=== PATIENT | female | born 1970 | race Caucasian/White ===

== ENCOUNTER → 2018-06-08 17:52 | Outpatient (CLI) | payer BC, SELFPAY ==
[2018-06-08 19:55] LABS: M R Staph aureus DNA By PCR Negative (Negative); Probe Check PASS; Specimen Processing Control PASS; Staph aureus DNA By PCR POSITIVE (Negative)
== END ==
PROVIDERS: Family Provider Internal Medicine; PCP Internal Medicine; Visit Provider Podiatrist
DX: L60.0 Ingrowing nail (principal)
CPT/HCPCS: 87070; 87075; 87077; 87186; 87205; 87640

== ENCOUNTER → 2019-01-09 14:05 | Outpatient (CLI) | payer BC, SELFPAY ==
[2019-01-09 10:20] VITALS: BMI 27.6
[2019-01-09 16:18] LABS: Chlamydia Trachomatis by PCR Negative (Negative); Neisserai gonorrhoeae by PCR Negative (Negative); Probe Check PASS; Sample Adequacy Control PASS; Specimen Processing Control PASS
[2019-01-11 14:24] LABS: HPV APTIMA, High Risk Negative (Negative)
== END ==
PROVIDERS: Referring Provider Nurse Practitioner Women's Health; Visit Provider Nurse Practitioner Women's Health
DX: Z12.4 Encounter for screening for malignant neoplasm of cervix (principal); Z11.3 Encounter for screening for infections with a predominantly sexual mode of transmission
CPT/HCPCS: 87491; 87591; 87624; 88175; G0145

== ENCOUNTER → 2019-01-12 07:44 | Outpatient (CLI) | payer BC, SELFPAY ==
[2019-01-09 10:20] VITALS: BMI 27.6
--- NOTE | 2019-01-12 07:51 | US_ITS ---
STUDY: ULTRASOUND OF THE FEMALE PELVIS - COMPLETE REASON FOR EXAM: Female, 48 years old. Prolapse LMP: 12/29/2018 TECHNIQUE: Transabdominal and Transvaginal TECHNICAL QUALITY: Adequate. COMPARISON: None. FINDINGS: The uterus is anteverted and is in a midline position. The uterus measures 9.1 x 5.7 x 4.6 cm. There is a Nabothian cyst of the cervix. The endometrium measures 3.7 mm in thickness, and is hyperechoic. There is no demonstrated endometrial mass. Myometrial fibroid noted measuring 1.8 x 1.7 x 1.4 cm. I.U.D. - The patient does not have an I.U.D. The right ovary is visualized. The right ovary measures 2.7 x 2 x 1.7 cm. There is no right ovarian cyst or ovarian mass. There is no visualized right adnexal mass or complex lesion. There is normal arterial and normal venous vascularity. The left ovary is visualized. The left ovary measures 2.2 x 2.6 x 1.4 cm. There is no left ovarian cyst or ovarian mass. There is no visualized left adnexal mass or complex lesion. There is normal arterial and normal venous vascularity. There is no fluid in the cul-de-sac. The pre void volume of the bladder was 348 ml. US/Transvaginal Non- IMPRESSION: Small uterine fibroid. Otherwise, unremarkable exam. Electronically Signed: Denny Ventura DO at 12:00 EST Tel , Service support ,
--- NOTE | 2019-01-12 07:51 | US_ITS ---
STUDY: ULTRASOUND OF THE FEMALE PELVIS - COMPLETE REASON FOR EXAM: Female, 48 years old. Prolapse LMP: 12/29/2018 TECHNIQUE: Transabdominal and Transvaginal TECHNICAL QUALITY: Adequate. COMPARISON: None. FINDINGS: The uterus is anteverted and is in a midline position. The uterus measures 9.1 x 5.7 x 4.6 cm. There is a Nabothian cyst of the cervix. The endometrium measures 3.7 mm in thickness, and is hyperechoic. There is no demonstrated endometrial mass. Myometrial fibroid noted measuring 1.8 x 1.7 x 1.4 cm. I.U.D. - The patient does not have an I.U.D. The right ovary is visualized. The right ovary measures 2.7 x 2 x 1.7 cm. There is no right ovarian cyst or ovarian mass. There is no visualized right adnexal mass or complex lesion. There is normal arterial and normal venous vascularity. The left ovary is visualized. The left ovary measures 2.2 x 2.6 x 1.4 cm. There is no left ovarian cyst or ovarian mass. There is no visualized left adnexal mass or complex lesion. There is normal arterial and normal venous vascularity. There is no fluid in the cul-de-sac. The pre void volume of the bladder was 348 ml. US/Pelvic (Non ) IMPRESSION: Small uterine fibroid. Otherwise, unremarkable exam. Electronically Signed: Denny Ventura DO at 12:00 EST Tel , Service support ,
== END ==
PROVIDERS: Referring Provider Nurse Practitioner Women's Health; Visit Provider Nurse Practitioner Women's Health
DX: D25.9 Leiomyoma of uterus, unspecified (principal)
CPT/HCPCS: 76830; 76856

== ENCOUNTER → 2022-12-30 | Outpatient (CLI) | payer BC, SELFPAY ==
[2022-12-30 15:39] LABS: Absolute Lymphocyte Count 2.97 X10^3/uL (0.83-4.51); Absolute Neutrophil Count 4.2 X10^3/uL (2.0-7.7); Basophil# 0.06 X10^3/uL; Basophil% 0.7 % (0-1); Eosinophil# 0.36 X10^3/uL; Eosinophils% 4.4 % (0-5); Hematocrit 39.2 % (37-47); Hemoglobin 12.9 g/dL (12.0-15.0); Lymphocyte # 2.97 X10^3/ul (0.83-4.51); Lymphocyte % 36.5 % (19-41); Mean Corp Hgb Conc 32.9 g/dL (32-36); Mean Corpuscular Hgb 30.4 pg (27.0-32.0); Mean Corpuscular Volume 92.2 fL (81-99); Mean Platelet Vol. 8.3 fl (6.2-12.0); Monocyte# 0.55 X10^3/uL; Monocyte% 6.8 % (0-10); NRBC Flagged by Analyzer 0 % (0-5); Neutrophil # 4.18 X10^3/uL (2.7-7.7); Neutrophil % 51.5 % (47-70); Platelet Count 259 K/mm3 (150-450); RBC Distribution Width CV 12.7 % (11.6-14.6); RBC Distribution Width SD 43.2 fl (35.1-43.9); Red Blood Count 4.25 M/mm3 (4.2-5.4); White Blood Count 8.1 K/mm3 (4.4-11.0)
[2022-12-30 16:06] LABS: Hemoglobin A1c 5.2 % (3.8-5.6)
[2022-12-30 16:25] LABS: AST(SGOT) 15 U/L (15-37); Alanine Aminotransfer ALT/SGPT 17 U/L (13-56); Albumin, Serum 3.6 g/dL (3.2-5.0); Alkaline Phosphatase 95 U/L (45-117); Anion Gap 7 (5-15); BUN 17 mg/dL (7-18); BUN/Creat Ratio 22.1 RATIO (10-20); Calcium,Total 9.3 mg/dL (8.5-10.1); Chloride 110 mmol/L (98-107); Cholesterol 168 mg/dL (200); Creatinine, Serum 0.77 mg/dL (0.55-1.02); EST Glomerular Filtration Rate 83 mL/min (>60); Est Glom Filt Rate - Afr Amer 101 mL/min (>60); Globulin 3.6 g/dL (2.2-4.2); Glucose 77 mg/dL (74-106); High Density Lipoprotein 62 mg/dL; Potassium 4.1 mmol/L (3.5-5.1); Protein, Total 7.2 g/dL (6.4-8.2); Sodium Level 142 mmol/L (136-145); Thyroid Stim Hormone (TSH) 0.94 uIU/mL (0.358-3.74); Triglycerides 65 mg/dL; Very Low Density Lipoprotein 13 mg/dL (5-40)
== END | disposition home or self-care (01) ==
LOC: LAB 13:39
DX: Z01.411 Encounter for gynecological examination (general) (routine) with abnormal findings (principal)
CPT/HCPCS: 36415; 80053; 80061; 83036; 84443; 85025

== ENCOUNTER → 2023-01-14 | Outpatient (CLI) | payer BC, SELFPAY ==
--- NOTE | 2023-01-14 08:23 | BI_ITS ---
MAMMOGRAPHY - BILATERAL SCREENING REASON FOR EXAM: Female, 52 years old. Routine annual screening examination. PERTINENT HISTORY: Non-contributory. TECHNIQUE: Digital bilateral breast deshawn (3D mammographic acquisition) in the CC and MLO projections. 2-D mediolateral oblique (MLO) and craniocaudad (CC) views of both breasts were obtained. CAD: Full Field Digital Mammography with Computer Added Detection was performed. COMPARISON: Comparison is made with prior study 08/01/2014. FINDINGS: Breast Composition: The breasts are heterogeneously dense, which may obscure small masses. There are no dominant masses or suspicious calcifications. Stable small benign-appearing bilateral axillary lymph nodes. No other significant abnormalities are identified. There has been no significant change since the prior study. BI/SCRN MAMM (CAD)W/DESHAWN BILAT IMPRESSION: Stable bilateral screening mammogram. Yearly follow-up mammogram recommended. (A) ASSESSMENT CATEGORY: BIRADS Category 2: Benign. A letter regarding these results will be sent to the patient by the facility within 30 days. Approximately 10% of breast cancers are not detected by mammography. A normal mammogram should not delay biopsy of a clinically suspicious abnormality. [id number] Electronically Signed: Benigno Ruvalcaba MD at 10:04 EST ,
== END | disposition home or self-care (01) ==
PROVIDERS: Referring Provider Nurse Practitioner Women's Health; Visit Provider Nurse Practitioner Women's Health
DX: Z12.31 Encounter for screening mammogram for malignant neoplasm of breast (principal)
CPT/HCPCS: 77063; 77067

== ENCOUNTER → 2023-01-15 | Outpatient (CLI) | payer BC, SELFPAY ==
[2023-01-20 19:47] LABS: Calprotectin, Stool <16 ug/g (0-120)
== END | disposition home or self-care (01) ==
LOC: LABSPEC 08:56
PROVIDERS: Referring Provider Surgery; Visit Provider Surgery
DX: R19.7 Diarrhea, unspecified (principal); K59.00 Constipation, unspecified; R10.9 Unspecified abdominal pain
CPT/HCPCS: 82274; 83630; 83993; 87177; 87209; 87493; 87506

== ENCOUNTER 2023-03-04 08:58 | Day surgery (SDC) | payer BC, SELFPAY ==
[2023-03-04] VITALS (8 sets, daily range): BP systolic 96–132; BP diastolic 57–80; PULSE 63–76; RESP 16–18; TEMP 36.6–37; O2SAT 97–100; BMI 26.7
--- NOTE | 2023-03-04 | COLBX_PTH ---
PATIENT: TAMARA REGALADO LOC: EN U#:[id number] AGE/SX: 52/F ROOM: RE03/04/[address]: Dr. David Acosta MD : 1970 BED: DIS: 03/04/2023 SPEC #: [id number] RECD: 03/04/23 12:19 STATUS: JANELLE SHRAVAN #: [id number] DE: 03/04/23 00:[address]: David Acosta DEPT: SURGICAL PATHOLOGY RECD BY: Sukhjinder Craft ENTERED: 03/04/23 12:20 SP TYPE: COLON BX OTHR DR: [facility] Tissues: A - Ascending colon B - Transverse colon C - Descending colon D - Sigmoid colon biopsy E - Rectum, NOS Procedures: Surgery Specimen Level IV HEADER OPERATION: Colonoscopy (MAC) with biopsies PRE-OP DIAGNOSIS: Diarrhea, constipation, acid reflux, hemorrhoids TISSUE SUBMITTED: A ? Ascending colon biopsy, B ? Transverse colon biopsy, C ? Descending colon biopsy, D ? Sigmoid colon biopsy, E ? Rectal biopsy MICROSCOPIC DIAGNOSIS A. Ascending colon, biopsy: Fragments of colonic mucosa, no pathologic diagnosis. B. Transverse colon, biopsy: Fragments of colonic mucosa, no pathologic diagnosis. C. Descending colon, biopsy: Fragments of colonic mucosa, no pathologic diagnosis. D. Sigmoid colon, biopsy: Fragments of colonic mucosa, no pathologic diagnosis. E. Rectal biopsy: Fragments of colonic mucosa, no pathologic diagnosis. SJ:lalitha 03/05/2023 MICROSCOPIC DESCRIPTION Slides are reviewed. GROSS DESCRIPTION A - Received in fixative is one container labeled with the patient's name and designated ascending colon biopsy. The specimen consists of multiple irregular fragments of light villalobos soft tissue that in aggregate measure 1.5 x 0.2 x 0.1 cm. The specimen is totally submitted in one cassette. B - Received in fixative is one container labeled with the patient's name and designated transverse colon biopsy. The specimen consists of multiple irregular fragments of light villalobos soft tissue that in aggregate measure 1.5 x 0.3 x 0.1 cm. The specimen is totally submitted in one cassette. C - Received in fixative is one container labeled with the patient's name and designated descending colon biopsy. The specimen consists of two irregular fragments of light villalobos soft tissue that in aggregate measure 0.6 x 0.3 x 0.1 cm. The specimen is totally submitted in one cassette. D - Received in fixative is one container labeled with the patient's name and designated sigmoid colon biopsy. The specimen consists of multiple irregular fragments of light villalobos soft tissue that in aggregate measure 0.6 x 0.3 x 0.1 cm. The specimen is totally submitted in one cassette. E - Received in fixative is one container labeled with the patient's name and designated rectal biopsy. The specimen consists of two irregular fragments of light villalobos soft tissue that in aggregate measure 0.6 x 0.3 x 0.1 cm. The specimen is totally submitted in one cassette. / SJ:rg 03/04/2023 TC:4 CPT: 98438 x5
[2023-03-04] MEDS: Lactated Ringers 1,000 ML 15 ML IV (09:27)
--- NOTE | 2023-03-04 10:46 | PCM.HP.BLA ---
History and Physical Date of Admission: 03/04/23 Date of Service:? 01/13/23 MR#: [id number] Acct: [id number] Name:TAMARA SANDOVAL Rep #: [id number] : 1970 ? ? Provider: Dr. David Acosta MD Age/Sex:? 52/F ? ? Location: [facility] Status: Signed Intake Vital Signs ? 01/11/2309:02 01/13/2308:56 Height 5 ft 1 in 5 ft 1 in Weight: ? 146 lb BMI ? 27.6 BP ? 143/85 H Blood Pressure Location ? Lt brachial Position ? Sitting Respiration ? 16 Pulse ? 72 Pulse Source ? Monitor Temp ? 97.6 F L Temp Source ? Temporal Pulse Oximetry (%) ? 99 Oxygen Delivery Method ? room air Intake Visit Reasons:?Constipation/Diarrhea Chief Complaint: Constipation/Diarrhea Skylights Assembler Required: No Is patient in pain?: No Allergies No Known Allergies Allergy (Unverified 01/13/23 08:58) Medications ibuprofen 200 mg capsule 200 mg PO TID-QID PRN 01/09/19 [History Confirmed 01/13/23] PFSH Medical History?(Updated 01/13/23 @ 15:[address] David Acosta MD) Anxiety and depression History of back problems Surgical History? H/O dilation and curettage H/O tubal ligation History of toe surgery History of tonsillectomy Family History?(Updated 01/13/23 @ 08:56 by Frances Wednesday) Mother COPD (chronic obstructive pulmonary disease) Kidney disease CVA (cerebral vascular accident) Congestive heart disease Heart disease HypertensionFather Congestive heart disease COPD (chronic obstructive pulmonary disease) Hypertension Social History? Smoking Status:? Never smoker alcohol intake:? never substance use type:? does not use caffeine:? Yes what type of physical activity do you participate in:? walking seatbelt use:? always do you feel safe at home:? 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 They are referred for surgical consultation from [facility]. She states that she was seen [facility] and was advised to present for evaluation after discussing her symptoms.? She states that she has talked a lot of people about IBS and decided to have herself checked.? She reports greater than 10-year history of diarrhea and constipation.? She notes that she always has Imodium with her and usually takes 2 tablets every day.? She notes that if she eats any hibachi [place] food this is cause for more diarrhea.? She also identifies triggers as poultry or eggs.? 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 Patient has not had prior colonoscopy.? Patient has no personal history of colon cancer, inflammatory bowel disease, or diverticulitis. They describe their bowel habits as most recently normal.? They have approximately 3 per day and spend no more than 5 minutes on the toilet without (now) significant straining.? They have not noticed recent bleeding or dark stools.? They do not regularly take fiber supplements.? They do have a history of hemorrhoids which she states has been there since her first in 1988.? When asked what treatment she has done for these hemorrhoids she reports that she just waits for them to go back down and has never done even anything topically to treat them.? She notes that it by decreasing her grease intake this seems to have decreased her incidence of troubles.? She notes that in the midst of a hemorrhoid flare.? She experiences bulging, itching, pain, and bleeding.? She reports her last bleeding episode was a couple of days ago. Patient has no family history of colon cancer, inflammatory bowel disease, or diverticulitis.? She states this could simply be due to her lack of awareness on the issue as her mother was very secretive about health diagnoses.? She does remark that her mother had constipation issues and also towards the end of her life experienced incontinence symptoms.? The patient's weight is not stable.? She reports an approximately 17 pound weight loss since July 2022.? She states that although this is unintentional, she believes she knows that this is related to her depression from a break-up with longtime boyfriend.? She reports that her eating habits are picking up.? And along with this she is noticing an improvement in her energy levels to (where she had previously reported some fatigue). The patient is not prescribed anticoagulants/blood thinners. Relevant prior abdominal surgical history includes: D&C Patient does have a significant history of GERD.? She states that she primarily has reflux and minimal heartburn.? She states that she never had gotten it checked out, but learned to manage it herself.? She intentionally avoided food triggers like spicy foods and marinara sauces.? She reports only using Tums to treat this symptom.? She notes that over 10 years ago she was trialed on omeprazole, but has not been on a PPI medication since.? She reports that her episodes of reflux have not been particularly bad and her last episode was some 2 to 3 months ago.? However, previously she notes that her episodes could have been 2-3 times per day. ROS General General: Yes weight change and fatigue; No appetite, colon cancer, breast cancer or weakness HEENT HEENT: No difficulty swallowing, eye injury, eye surgery, swollen glands or hoarseness Endo Endocrine: No thyroid disease, diabetes mellitus, thyroid cancer, Hair loss, heat intolerance or cold intolerance Skin Skin: No rash or changing moles Musc Musculoskeletal: Yes back problems; No arthritis, rheumatoid arthritis, gout or joint pain Cardio Cardiovascular: No murmur, pacemaker, heart disease, atrial fibrillation, high blood pressure, heart attack, heart stent, palpitations, shortness of breat with exertion or chest pain Psych Psychiatric: Yes depression; No anxiety or hearing voices Resp Respiratory: No shortness of breath, Yes sleep apnea, No cough, No COPD, No asthma, No emphysema and No wheezing Gastro Gastrointestinal: Yes abdominal pain, No nausea or vomiting, Yes diarrhea, Yes constipation, No blood in stool, Yes acid reflux, Yes hemorrhoids, No ulcers, No gallbladder problem and No black,tarry stools Josr Hematologic: No blood thinners, No blood disorders, No bleeding, No anemia and No blood clots Neuro Neurologic: No system reviewed and no additional complaints, except as documented, No as per HPI, No abnormal gait, No abnormal hearing, No abnormal movements, No abnormal speech, No behavioral changes, No burning sensations, No confusion, No convulsions, No disequilibrium, No dizziness, No localized weakness, No frequent falls, No headache(s), No lack of coordination, No loss of vision, No memory loss, No numbness, No other visual disturbances, No radicular pain, No restless legs, No sensory deficit, No syncope, No tingling, No tremor(s), No weakness and No other Exam Const General: cooperative, comfortable, no acute distress and anxious Orientation: alert, awake and oriented x3 Resp Effort & Inspection: normal respiratory effort Cardio Rate: regular rate Rhythm: regular rhythm GI Other: No scars nondistended, soft, nontender to palpation x4 quadrants Assessment and Plan Assessment and Plan (1) Diarrhea: ?Status:?Chronic ?Comment: Patient has a greater than 10-year history of alternating constipation and diarrhea.? She has identified food triggers as being poultry, eggs, or [place]isian food.? Even when avoiding these food triggers, she must take 2 tablets of Imodium daily to prevent having an abundance of bowel movements.? She notes that with these 2 tablets of Imodium her stools have become rather normal and by this I clarified that she means they are soft and formed.? She denies any mention of recent bloody or dark stools, but does admit to a history of hemorrhoids.? She denies any present issues, but does report bleeding within the last week.? She expresses a concern for irritable bowel syndrome based on his history, but was delayed in her presentation on the account of being the primary caregiver for her mother.? She denies any awareness of significant GI diagnoses familialy.? Based on her descriptions, I believe that irritable bowel syndrome does belong in patient's differential, but would like to exclude other possible causes?such as chronic enteric pathogen infection, colitis, other?.? I will plan to pursue investigation with stool studies and then have recommended proceeding for diagnostic colonoscopy. ?Plan: ? Stool studies?enteric pathogen, stool lactoferrin, calprotectin ? Diagnostic colonoscopy at first mutually agreeable date.? Patient is advised that she will required bulk driver the day of the procedure.? She is also informed that she will require a bowel prep and details of this prep were briefly explained. (2) Constipation: ?Status:?Chronic ?Comment: Patient reports history of constipation, but also use of Imodium for diarrhea.? When asked directly, she states that her experience of diarrhea and constipation are fairly evenly balanced and incidence. (3) Acid reflux: ?Status:?Chronic ?Comment: Patient has a history of reflux which she states remotely was managed with PPI therapy, but most recently has been managed symptomatically with Tums.? She states that it has been 2 to 3 months since she had her last episode.? I have stressed to her the need to avoid food triggers, but also the importance of temporarily spacing out her meals from bedtime.? Given the infrequency of her symptoms most recently, I do not see a cause to pursue diagnostic EGD concurrent with her planned colonoscopy. (4) Hemorrhoids: ?Status:?Chronic ?Comment: Patient reports a longstanding history of hemorrhoids, but also reporting that she is never tried even conservative measures for treatment.? At this time, I have recommended such measures and described use of fiber, sitz bath's, Tucks pads, and [id number] versus prescription hydrocortisone ointments.? If patient is experiencing a flare of her hemorrhoid activity closer to the time of her diagnostic colonoscopy, we could consider endoscopic banding. I have examined the patient and the H&P has been reviewed. There are no clinical changes since date of exam. Patient reports that her bowel prep proceeded uneventfully and that her output is now clear. She does report that she has experienced some hemorrhoids, but she declines an offer for banding as she does not believe they are that bad. She denies any further questions so we will proceed to the endoscopy suite for colonoscopy as discussed above.
--- NOTE | 2023-03-04 11:30 | OP.COLON_ITS ---
Patient Name: Abbie Fajardo Procedure Date: 03/04/2023 10:45 AM Date of : 1970 Age: 52 Procedure: Colonoscopy Indications: Chronic diarrhea, Constipation Providers: David Acosta MD Referring MD: David Acosta MD Medicines: See the Anesthesia note for documentation of the administered medications Patient Profile: Last Colonoscopy: none. The patient's first colonoscopy is today. Complications: No immediate complications. Estimated blood loss: Minimal. Procedure: Pre-Anesthesia Assessment: - The heart rate, respiratory rate, oxygen saturations, blood pressure, adequacy of pulmonary ventilation, and response to care were monitored throughout the procedure. After I obtained informed consent, the scope was passed under direct vision. Throughout the procedure, the patient's blood pressure, pulse, and oxygen saturations were monitored continuously. The Colonoscope was introduced through the anus and advanced to the cecum, identified by palpation. The colonoscopy was performed without difficulty. The patient tolerated the procedure well. The quality of the bowel preparation was good. Scope In: 10:54:08 AM Scope Withdrawal Time 0 hours 21 minutes 55 seconds Scope Out: 11:21:35 AM Total Procedure Duration Time 0 hours 27 minutes 27 seconds Findings: Skin tags were found on perianal exam. Multiple small and large-mouthed diverticula were found in the sigmoid colon. No biopsies or other specimens were collected for this exam. Normal mucosa was found in the entire colon. Biopsies for histology were taken with a cold forceps from the ascending colon, transverse colon, descending colon, sigmoid colon and rectum for evaluation of microscopic colitis. Estimated blood loss was minimal. The retroflexed view of the distal rectum and anal verge was normal and showed no anal or rectal abnormalities. No biopsies or other specimens were collected for this exam. Impression: - Perianal skin tags found on perianal exam. - Diverticulosis in the sigmoid colon. No specimens collected. - Normal mucosa in the entire examined colon. Biopsied. - The distal rectum and anal verge are normal on retroflexion view. Recommendation: - Discharge patient to home (via wheelchair). - High fiber diet today. - Continue present medications. - Await pathology results. - Repeat colonoscopy date to be determined after pending pathology results are reviewed for surveillance based on pathology results. - Telephone my office for pathology results in 1 week. Procedure Code(s): --- Professional --- 02042, Colonoscopy, flexible; with biopsy, single or multiple Diagnosis Code(s): --- Professional --- K64.4, Residual hemorrhoidal skin tags K52.9, Noninfective gastroenteritis and colitis, unspecified K59.00, Constipation, unspecified K57.30, Diverticulosis of large intestine without perforation or abscess without bleeding CPT copyright 2017 [employer]. All rights reserved. The codes documented in this report are preliminary and upon brokerage office manager review may be revised to meet current compliance requirements. David Acosta MD 03/04/2023 11:29:55 AM This report has been signed electronically. Number of Addenda: 0 Note Initiated On: 03/04/2023 10:45 AM
--- NOTE | 2023-03-04 11:31 | OP.CCLET_ITS ---
03/04/2023 [facility] Re : [facility] This procedure was performed on February. My impressions and recommendations are as follows: Impressions : - Perianal skin tags found on perianal exam. - Diverticulosis in the sigmoid colon. No specimens collected. - Normal mucosa in the entire examined colon. Biopsied. - The distal rectum and anal verge are normal on retroflexion view. Recommendations : - Discharge patient to home (via wheelchair). - High fiber diet today. - Continue present medications. - Await pathology results. - Repeat colonoscopy date to be determined after pending pathology results are reviewed for surveillance based on pathology results. - Telephone my office for pathology results in 1 week. My findings are described in the full procedure note, which is enclosed. If I can be of further assistance, please feel free to contact me at Doctor phone number(s): , Work: . Sincerely, David Acosta MD 03/04/2023 11:29:55 AM This report has been signed electronically.
== END 2023-03-04 12:30 | disposition home or self-care (01) ==
LOC: EN 09:01 → AC 09:04
PROVIDERS: Visit Provider Surgery
PROC: 0DJD8ZZ Inspection of Lower Intestinal Tract, Via Natural or Artificial Opening Endoscopic (ICD-10-PCS; CPT 45378; principal; 2023-03-04 09:55)
DX: K57.30 Diverticulosis of large intestine without perforation or abscess without bleeding (principal); K21.9 Gastro-esophageal reflux disease without esophagitis; Z87.19 Personal history of other diseases of the digestive system; K64.4 Residual hemorrhoidal skin tags
CPT/HCPCS: 45380; 88305; J7120; J2405

== ENCOUNTER → 2023-08-11 | Outpatient (CLI) | payer BC, SELFPAY ==
[2023-08-11 12:17] LABS: Absolute Neutrophil Count 3.9 X10^3/uL (2.0-7.7); Basophil# 0.07 X10^3/uL; Basophil% 0.9 % (0-1); Eosinophil# 0.17 X10^3/uL; Eosinophils% 2.1 % (0-5); Hematocrit 38.9 % (37-47); Hemoglobin 13.3 g/dL (12.0-15.0); Lymphocyte % 41.5 % (19-41); Mean Corp Hgb Conc 34.2 g/dL (32-36); Mean Corpuscular Hgb 30.2 pg (27.0-32.0); Mean Corpuscular Volume 88.4 fL (81-99); Monocyte# 0.42 X10^3/uL; Monocyte% 5.3 % (0-10); NRBC Flagged by Analyzer 0 % (0-5); Neutrophil # 3.94 X10^3/uL (2.7-7.7); Neutrophil % 49.6 % (47-70); Platelet Count 279 K/mm3 (150-450); RBC Distribution Width CV 12.4 % (11.6-14.6); RBC Distribution Width SD 39.8 fl (35.1-43.9)
[2023-08-11 12:53] LABS: Hemoglobin A1c 5.2 % (3.8-5.6)
[2023-08-11 13:21] LABS: AST(SGOT) 18 U/L (15-37); Alanine Aminotransfer ALT/SGPT 22 U/L (13-56); Albumin, Serum 3.7 g/dL (3.2-5.0); Alkaline Phosphatase 109 U/L (45-117); Anion Gap 4 (5-15); BUN 10 mg/dL (7-18); BUN/Creat Ratio 10.4 RATIO (10-20); Calcium,Total 9.2 mg/dL (8.5-10.1); Chloride 107 mmol/L (98-107); Cholesterol 196 mg/dL (200); Creatinine, Serum 0.96 mg/dL (0.55-1.02); EST Glomerular Filtration Rate 65 mL/min (>60); Est Glom Filt Rate - Afr Amer 78 mL/min (>60); Globulin 3.7 g/dL (2.2-4.2); Glucose 92 mg/dL (74-106); High Density Lipoprotein 49 mg/dL; Potassium 4.2 mmol/L (3.5-5.1); Protein, Total 7.4 g/dL (6.4-8.2); Sodium Level 140 mmol/L (136-145); Thyroid Stim Hormone (TSH) 1.51 uIU/mL (0.358-3.74); Triglycerides 142 mg/dL; Very Low Density Lipoprotein 28 mg/dL (5-40)
== END | disposition home or self-care (01) ==
LOC: LAB 11:56
PROVIDERS: Referring Provider Nurse Practitioner Family; Visit Provider Nurse Practitioner Family
DX: H81.10 Benign paroxysmal vertigo, unspecified ear (principal); Z13.1 Encounter for screening for diabetes mellitus; Z13.220 Encounter for screening for lipoid disorders
CPT/HCPCS: 36415; 80053; 80061; 83036; 84443; 85025

== ENCOUNTER 2023-08-16 07:55 | Outpatient (RCR) | payer BC, SELFPAY ==
--- NOTE | 2023-08-16 08:42 | HP.PTEVAL_ITS ---
Patient's Visit Information Visit Information Visit Information: TAMARA REGALADO is a 52 year old F referred to Physical Therapy by ROXANA Graham with a diagnosis of vertigo. Date of Evaluation: 08/16/23 Physical Therapist: Fred Mckinney, DPT, OCS, CSCS Visit Plan Frequency: 1-2x /Week Duration: 2-4 Weeks Plan: 1-2x/week as needed x 2-4 for positional treatments and exercises as needed, Check oculomotor as needed if not improving. Subjective Subjective: Went camping Labor day weekend and woke up unsteady all day long, described as off balance. That night went to friend';s house and got spinning when she lied down that night for 3-5 minutes. it went away when she laid still. Has not been that severe since. Usually now it happens to be some off balance when she first gets up, also if she looks up to high can feel some queaziness but does not spin, needs to refocus. 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 That feeling is happening multiple times per day last week. Has medicine for this that she still takes. Sleeping OK. Feels normal other times of day and balance feels fine. Drives OK. Objective Objective: Walks I and safely adn normal into PT with good balance. cervical aROM WFL and without pain, hesitant to look up. UE AROM WFL and without RO}M deficits. Strength is 4/5. Sensation WNL to gross light touch. romberg 30 eo and 30 ec. - R HD + L HD slight up torsional 8 second nystagmus, treated with L lorenzo and then better HD. Balance/Special Test Scores Functional Gait Assessment Score: 29 % Disability: 3.3400 Dizziness Score: 30 Goals Goal 1:: Abolish dizzyness at work and sleep Goal Time Frame: 2-4 Weeks Goal 2:: Pt feel 100% back to normal Goal Time Frame: 2-4 Weeks Rehabilitation Potential Physical Therapy Diagnosis: L BPPV Rehabilitation Potential: Good Anticipated Interventions Patient/Client Instruction: Educate patient on: Condition and Risk Factors For the Purpose of:: To increase tolerance to activity/condition/position Comment: positional ex adn treatments vestibular as needed. For the Purpose of:: To increase tolerance to activity/condition/position Text: Thank you for the opportunity to evaluate your patient. For Medicare and Medicare HMO plans, please review the plan of care and approve it. It will need to be FAXED BACK to us at [phone] for Medicare purposes. For Medicare only, by signing this I certify the plan of care. Please let me know if there are questions or concerns regarding this plan of care. Physician Signature: Date:
--- NOTE | 2023-10-05 10:40 | HP.PT.NRP ---
Patient Information Patient Information: TAMARA REGALADO was seen in my office for initial evaluation on 08/16/23. The following Plan of Care was established for this patient: POC Established Initial Frequency: 1-2x /Week Initial Duration: 2-4 Weeks Anticipated Interventions Patient/Client Instruction: Educate patient on: Condition and Risk Factors For the Purpose of:: To increase tolerance to activity/condition/position For the Purpose of:: To increase tolerance to activity/condition/position Last Seen Last Seen: This patient was last seen in our office 08/16/23. Pertinent comments regarding their Physical therapy will appear below: Pt seen one visit of POC and treated with positional treatment. Pt did not schedule or attend any further visits. At this point, it has been over 6 weeks and I will discontinue due to nonattendance. At this point I will be discontinuing this patient from physical therapy. I would be happy to see this patient again in the future if found appropriate by the physician. Thank you! Fred Mckinney, DPT, OCS, CSCS Balance/Gait/Functional tests Balance/Special Test Scores Functional Gait Assessment Score: 29 % Disability: 3.3400 Dizziness Score: 30
== END 2023-08-16 19:00 | disposition home or self-care (01) ==
LOC: PT 07:55
PROVIDERS: Referring Provider Nurse Practitioner Family; Visit Provider Nurse Practitioner Family
DX: H81.10 Benign paroxysmal vertigo, unspecified ear (principal)
CPT/HCPCS: 97161

== ENCOUNTER → 2024-09-19 | Outpatient (CLI) | payer BC, SELFPAY ==
[2024-09-19 18:44] LABS: Absolute Lymphocyte Count 2.47 X10^3/uL (0.83-4.51); Absolute Neutrophil Count 4.8 X10^3/uL (2.0-7.7); Basophil# 0.06 X10^3/uL; Basophil% 0.7 % (0-1); Eosinophil# 0.34 X10^3/uL; Eosinophils% 4.2 % (0-5); Hematocrit 36.6 % (37-47); Hemoglobin 12.4 g/dL (12.0-15.0); Lymphocyte # 2.47 X10^3/ul (0.83-4.51); Lymphocyte % 30.3 % (19-41); Mean Corp Hgb Conc 33.9 g/dL (32-36); Mean Corpuscular Hgb 30.6 pg (27.0-32.0); Mean Corpuscular Volume 90.4 fL (81-99); Mean Platelet Vol. 9.4 fl (6.2-12.0); Monocyte# 0.49 X10^3/uL; NRBC Flagged by Analyzer 0 % (0-5); Neutrophil # 4.78 X10^3/uL (2.7-7.7); Neutrophil % 58.6 % (47-70); Platelet Count 263 K/mm3 (150-450); RBC Distribution Width CV 12.7 % (11.6-14.6); RBC Distribution Width SD 41.9 fl (35.1-43.9); Red Blood Count 4.05 M/mm3 (4.2-5.4); White Blood Count 8.2 K/mm3 (4.4-11.0)
[2024-09-19 18:52] LABS: ALB/GLOB Ratio 0.9 RATIO (0.9-2.4); AST(SGOT) 18 U/L (15-37); Alanine Aminotransfer ALT/SGPT 21 U/L (13-56); Albumin, Serum 3.2 g/dL (3.2-5.0); Alkaline Phosphatase 107 U/L (45-117); Anion Gap 7 (5-15); BUN 23 mg/dL (7-18); BUN/Creat Ratio 23.7 RATIO (10-20); Calcium,Total 8.9 mg/dL (8.5-10.1); Chloride 110 mmol/L (98-107); Cholesterol 180 mg/dL (200); Creatinine, Serum 0.97 mg/dL (0.55-1.02); EST Glomerular Filtration Rate 63 mL/min (>60); Est Glom Filt Rate - Afr Amer 77 mL/min (>60); Globulin 3.5 g/dL (2.2-4.2); Glucose 101 mg/dL (74-106); High Density Lipoprotein 58 mg/dL; Potassium 4.1 mmol/L (3.5-5.1); Protein, Total 6.7 g/dL (6.4-8.2); Sodium Level 139 mmol/L (136-145); Thyroid Stim Hormone (TSH) 0.924 uIU/mL (0.358-3.740); Triglycerides 193 mg/dL; Very Low Density Lipoprotein 39 mg/dL (5-40)
[2024-09-19 18:55] LABS: Hemoglobin A1c 5.7 % (3.8-5.6)
--- OUTSIDE RECORDS SUMMARY | 2024-09-19 19:56 | XMS RPT_ITS | CCD ---
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 14 tablet 0 04/14/2024 04/21/2024 Active Start: 09-25-2020 End: 10-02-2020 amoxicillin-clavulanic acid (AUGMENTIN) 875-125 mg per tablet Indications: Ingrowing toenail of right foot , Cellulitis and abscess of toe of right foot Take 1 tablet by mouth twice daily for 7 days. FOR 7 DAYS. 14 tablet 0 09/25/2020 10/02/2020 Active Comment on above: Take 1 tablet by trevor th twice daily for 7 days. FOR 7 DAYS. diphenhydrAMINE (2 sources) Histamine-1 Receptor Antagonist diphenhydramine HCl (BENADRYL ALLERGY ORAL) Take by mouth. 0 Active Comment on above: Take by mouth. Xgpxraczeixfd-Brcxwksh-Kn tein (MULTIVITAMIN 50 PLUS) tab (2 sources) Multivitamins-Mi nerals-L utein (MULTIVITAMIN 50 PLUS) tab Take 1 tablet by mouth once daily. 0 Active Comment on above: Take 1 tablet by trevor th once daily. predniSONE 10 mg oral tablet (1 source) Start: 06-23-2022 End: 07-02-2022 predniSONE (DELTASONE) 10 mg tablet Indications: Rhus dermatitis Take 4 tabs daily for 3 days, then 2 tabs daily for 3 days, then 1 tab daily for 3 days with food. 21 tablet 0 06/23/2022 07/02/2022 Active Comment on above: Take 4 tabs daily fo r 3 days, then 2 tabs daily for 3 days, then 1 tab daily for 3 days with food. triamcinolone acetonide 1 mg/ml topical cream (1 source) Corticosteroid Start: 06-23-2022 End: 07-03-2022 triamcinolone acetonide (KENALOG) 0.1 % cream Indications: Rhus dermatitis Apply 1 application to affected area three times daily for 10 days. Apply sparingly to area for rash/itching. 80 g 0 06/23/2022 07/03/2022 Active Comment on above: Apply 1 application to affected area three times daily for 10 days. Apply sparingly to area for rash/itching. VITAMIN B COMPLEX-100 ORAL (2 sources) VITAMIN B COMPLE X-100 ORAL Take by mouth. 0 Active Comment on above: Take by mouth. Problems Active Problems Problem Classification Problem Date Documented Da te Episodic/Chronic Allergic reactions (1 source) Contact dermatitis due to Genus Toxicodendron; Translations: [Unspecified contact dermatitis due to plants, except food] Episodic Genitourinary symptoms and ill-defined conditions (6 sources) Urge incontinence of urine; Translations: [Urge incontinence] Onset: 02-25-2012 02-25-2012 Chronic Menstrual disorders (3 sources) Dysmenorrhea; Translations: [Dysmenorrhea, unspecified] Onset: 02-25-2012 02-25-2012 Chronic Other upper respiratory infections (1 source) Chronic sinusitis, unspecified; Translations: [Unspecified sinusitis (chronic)] 04-14-2024 Chronic Other upper respiratory infections (1 source) Sore throat symptom; Translations: [Acute pharyngitis, unspecified] 04-14-2024 Episodic Past or Other Problems Problem Classification Problem Date Documented Da te Episodic/Chronic Abdominal pain (6 sources) Right lower quadrant pain; Translations: [Right lower quadrant pain] Onset: 02-25-2012 02-25-2012 Episodic Genitourinary symptoms and ill-defined conditions (3 sources) Urgent desire to urinate; Translations: [Urgency of urination] Onset: 02-25-2012 02-25-2012 Episodic Other inflammatory condition of skin (3 sources) Pruritus of skin; Translations: [Pruritus, unspecified] Onset: 02-25-2012 02-25-2012 Episodic Results Test Name Value Interpretation Reference Range Facil ity CNOVon 04-14-2024 CNOV Office Visit (UCWSTR ) FABRICIODAKOTAH FORRSETERMEGAN Poon ([id number]) 1970 F Date Time Provider Department 04/14/24 12:15 PM MOHINI OCONNOR [facility] During your visit today, we recorded the following information about you: Temperature Pulse Respiration Blood pressure 98 degrees 89/minute 16/minute 138/72 Weight 66.6 kg Mohini Oconnor APRN.[facility] 04/14/2024 12:42 PM Signed CC: Patient presents with: Ear Problem: Left ear pain and sore throat 3 days HPI: Abbie Cleve [place] is a 53 year old female who presents to the office with complaint of cough, nonproductive, sore throat, sinus symptoms, and ear symptoms for a week. Symptoms are worsening Associated symptoms includes sore throat and facial pain/pressure. Denies fever, nausea, vomiting , pleuritic pain, and diarrhea. Treatments tried include nothing so far. with no relief of symptoms. Sick contacts: unknown. History of asthma, frequent episodes of bronchitis, chronic bronchitis, bronchiectasis or COPD: No Smoker: No Seasonal/environmental allergies: No The ROS is otherwise negative. The patient's pmh, medications, allergies, and past visits are reviewed. PHYSICAL EXAM: BP 138/72 Pulse 89 Temp 36.7 ?C (98 ?F) Resp 16 Wt 66.6 kg (146 lb 13.2 oz) LMP 06/03/2022 SpO2 97% General appearance: alert, cooperative, pleasant, in no acute distress Head: Normocephalic Eyes: EOM's intact, conjunctiva pink and moist, no icterus, sclera white, non-injected Ears: Right ear: External ear/canal- Normal, TM - erythematous. Left ear: External ear/canal- Normal, TM - clear with good landmarks Oropharynx:moist without lesions, No erythema, exudates or tonsillar hypertrophy. Heart: Negative. RRR without obvious murmur, gallop, or rubs. No ectopy. Lungs: clear to auscultation, without rales or wheeze, good air exchange PAST MEDICAL HISTORY Diagnosis Date Chlamydia Gestational diabetes Hearing loss Ovarian cyst UTI PAST SURGICAL HISTORY Procedure Laterality Date DILATION AND CURETTAGE DXAND/THER NONOBSTETRIC Dilation AND curettage for false LIG/TRNSXJ FLP TUBE ABDL/VAG APPR UNI/BI TONSILLECTOMY PRIMARY/SECONDARY Tonsillectomy ALLERGIES Patient has no known allergies. MEDICATIONS diphenhydramine HCl (BENADRYL ALLERGY ORAL) Take by mouth. VITAMIN B COMPLEX-100 ORAL Take by mouth. Multivitamins-Minerals -Lutein (MULTIVITAMIN 50 PLUS) tab Take 1 tablet by mouth once daily. FAMILY HISTORY Problem Relation Age of Onset Hypertension Father Hearing Loss Father Diabetes Mother Hypertension Mother other (high cholesterol) Mother other (MVP) Daughter other (Other) Daughter under develop trach Social History Tobacco Use Smoking status: Never Smokeless tobacco: Never Substance Use Topics Alcohol use: No Drug use: No ASSESSMENT/PLAN: 1. Sore throat - ICD9: 462, ICD10: J02.9 (primary diagnosis) - STREP A MOLECULAR (POC) - neg 2. Rhinosinusitis - ICD9: 473.9, ICD10: J32.9 - AMOXICILLIN 875 MG-POTASSIUM CLAVULANATE 125 MG TABLET Prescription instructions reviewed with patient as applicable. Potential red flag symptoms discussed with the patient. Reviewed appropriate action plan to take if red flag symptoms occur. Patient agreeable to treatment plan. Mohini Oconnor APRN.MANAGER OF PROCUREMENT Allergies As of Date: 04/14/2024 (No Known Allergies) Date Reviewed: 04/14/2024 Reviewed by: Ana Pennington - Fully Assessed Reason for Visit: Ear Problem [38] Cmt: Left ear pain and sore throat 3 days Primary Visit Diagnosis:Sore throat [J02.9] Other Visit Diagnosis:Rhinosinusit is [J32.9] Order(s):STREP A MOLECULAR (POC) [[id number]] Order #: [id number]. #:[id number] amoxicillin-clavulanat e potassium (AUGMENTIN) 875-125 mg per tabletTake 1 tablet by mouth two times a day for 7 days.Disp: 14 tabletRfl: 0 Prescriptions as of 04/14/2024 - amoxicillin-clavulanat e potassium (AUGMENTIN) 875-125 mg per tablet Take 1 tablet by mouth two times a day for 7 days. - diphenhydramine HCl (BENADRYL ALLERGY ORAL) Take by mouth. - VITAMIN B COMPLEX-100 ORAL Take by mouth. - Multivitamins-Minerals -Lutein (MULTIVITAMIN 50 PLUS) tab Take 1 tablet by mouth once daily. Problem List As Of Date 04/14/2024 Noted Resolved Abdominal pain, right lower quadrant [R10.31] 02/25/2012 Abdominal pain, left lower quadrant [R10.32] 02/25/2012 Dysmenorrhea [N94.6] 02/25/2012 Unspecified pruritic disorder [L29.9] 02/25/2012 Urgency of urination [R39.15] 02/25/2012 Urge incontinence [N39.41] 02/25/2012 Female stress incontinence [N39.3] 02/25/2012 Prescriptions ordered this encounter Disp Refills Start End AMOXICILLIN 875 MG-POTASSIUM CLAVULA* 14 t* 0 04/14/2024 04/21/2024 Route: ORAL Sig: Take 1 tablet by mouth two times a day for 7 days. Letter Text Encounter Status:Closed by CAROLYN OCONNOR (more content not included)... Normal [facility] STREP A MOLECULAR (POC)on Procedural Control Valid [facility] Strep A (POCT) Negative Negative [facility] Vital Signs Date Time Vital Sign Value Performing Clinician Faci lity 04-14-2024 12:19-0400 Body temperature 98.01 [degF] Mohini Oconnor APRN.MANAGER OF PROCUREMENT Work Phone: [facility] 04-14-2024 12:19-0400 Body weight 66.6 kg Mohini Oconnor APRN.MANAGER OF PROCUREMENT Work Phone: [facility] 04-14-2024 12:19-0400 Diastolic blood pressure 72 mm[Hg] Mohini Oconnor APRN.MANAGER OF PROCUREMENT Work Phone: [facility] 04-14-2024 12:19-0400 Heart rate 89 /min Mohini Oconnor APRN.MANAGER OF PROCUREMENT Work Phone: [facility] 04-14-2024 12:19-0400 Respiratory rate 16 /min Mohini Oconnor APRN.MANAGER OF PROCUREMENT Work Phone: [facility] 04-14-2024 12:19-0400 SaO2% (BldA) [Mass fraction] 97 % Mohini Oconnor APRN.MANAGER OF PROCUREMENT Work Phone: [facility] 04-14-2024 12:19-0400 Systolic blood pressure 138 mm[Hg] Mohini Oconnor OPERATIONS RESEARCH MANAGER.MANAGER OF PROCUREMENT Work Phone: [facility] 06-23-2022 08:14-0400 Body temperature 97.39 [degF] Aldair Maki OPERATIONS RESEARCH MANAGER.MANAGER OF PROCUREMENT Work Phone: [facility] 06-23-2022 08:14-0400 Body weight 70.22 kg Aldair Maki APRN.MANAGER OF PROCUREMENT Work Phone: [facility] 06-23-2022 08:14-0400 Diastolic blood pressure 74 mm[Hg] Aldair Maki OPERATIONS RESEARCH MANAGER.MANAGER OF PROCUREMENT Work Phone: [facility] 06-23-2022 08:14-0400 Heart rate 84 /min Aldair Maki OPERATIONS RESEARCH MANAGER.MANAGER OF PROCUREMENT Work Phone: [facility] 06-23-2022 08:14-0400 Respiratory rate 16 /min Aldair Maki OPERATIONS RESEARCH MANAGER.MANAGER OF PROCUREMENT Work Phone: [facility] 06-23-2022 08:14-0400 SaO2% (BldA) [Mass fraction] 98 % Aldair Maki OPERATIONS RESEARCH MANAGER.MANAGER OF PROCUREMENT Work Phone: [facility] 06-23-2022 08:14-0400 Systolic blood pressure 122 mm[Hg] Aldair Glynn OPERATIONS RESEARCH MANAGER.MANAGER OF PROCUREMENT Work Phone: [facility] Encounters Encounter Date Encounter Type Care Provider Facility Start: 04-14-2024 End: 04-14-2024 ambulatory Facility:[facility] Start: 04-14-2024 End: 04-14-2024 Patient encounter procedure Mohini Oconnor APRN.CNP Work Phone: [facility] Comment on above: Sore throat (Primary Dx); Rhinosinusitis Start: 06-23-2022 End: 06-23-2022 Patient encounter procedure Aldair Maki APRN.CNP Work Phone: [facility] Comment on above: Rhus dermatitis (Alina nikole Dx) Start: 09-26-2020 End: 09-26-2020 Telephone encounter Sundeep Neville Work Phone: Podiatry Comment on above: Patient Question Procedures Date Procedure Procedure Detail Performing Clinician Start: 04-14-2024 STREP A MOLECULAR (POC) Aldair Maki APRN.CNP Work Phone: Start: 03-20-2011 Lipid 1996 panel - S kemal or Plasma Mohini Oconnor APRN.CNP Work Phone: Plan of Treatment Date Care Activity Detail Author Start: 02-03-2028 Screening for malign ant neoplasm of cervix [facility] Start: 07-23-2024 Influenza vaccination Influenz a Vaccine (Season Ended) [facility] Start: 11-22-2023 Behavioral Health Screening Behavioral Health Screening [facility] Start: 07-23-2023 Covid-19 Vaccine ( season) Covid-19 Vaccine ( season) [facility] Start: 07-23-2022 Influenza vaccination INFLUENZA (#1) [facility] Start: 07-23-2020 Influenza vaccination INFLUENZA (#1) [facility] Start: 2019 SHINGRIX VACCINE (1 of 2) SHINGRIX V ACCINE (1 of 2) [facility] Start: 2019 Tuberculosis screening COLOREC AME CANCER SCREENING,SEE MODIFIER [facility] Start: 02-24-2017 PAP TESTING PAP TESTING [facility] Start: 03-20-2016 Lipid panel Lipid Screening [facility] Start: 03-20-2016 LIPID SCREEN LIPID SCREEN [facility] Start: 2014 COLOGUARD (FIT-DNA) COLOGUARD (FIT-D NA) [facility] Start: 2014 Colonoscopy COLONOSCOPY [facility] Start: 2014 COLORECTAL CANCER SCREENING COLORECTAL CANCER SCREENING [facility] Start: [address] COLONOGRAPHY [facility] Start: 2014 [facility] Start: 2014 Diabetes Screening Diabetes Screenin g [facility] Start: 2014 FECAL OCCULT BLOOD FECAL OCCULT BLOO D [facility] Start: 2014 Screening for malign ant neoplasm of colon [facility] Start: 2014 SIGMOIDOSCOPY SIGMOIDOSCOPY [facility] Start: 2009 Mammography MAMMOGRAM [facility] Start: 2009 Screening for malign ant neoplasm of breast Mammogram Screening [facility] Start: 1999 HPV TESTING HPV TESTING [facility] Start: 1988 Hepatitis B Vaccine (1 of 3 - 19+ 3-dose series) Hepatitis B Vaccine (1 of 3 - 19+ 3-dose series) [facility] Start: 1988 Urine microalbumin profile [facility] Start: 1987 HEPATITIS C SCREENING HEPATITIS C [facility] Start: 1987 Hepatitis C screening Hepatitis C [facility] Start: 1987 HIV SCREENING HIV SCREENING [facility] Start: 1987 HIV screening HIV Screening [facility] Start: 1981 Adult depression scr ning assessment DEPRESSION SCREENING [facility] Start: 06-02-1970 COVID-19 VACCINE (#1) COVID-19 VACCI NE (#1) [facility] Payers Date Payer Category Payer Unknown [employer] BLUE CARD PPO OOS [id number] 2022-Present [phone] [address] [place] [address] PPO [id number] 2022 Unknown [id number] 2019 Unknown [id number] Social History Date Type Detail Facility Start: 09-25-2020 End: 04-14-2024 Tobacco smoking status NHIS Never smoker [facility] Start: 09-25-2020 End: 04-14-2024 Tobacco use and exposure Never used [facility] Start: 09-25-2020 End: 04-14-2024 Alcohol intake Current non-drinker of alcohol (finding) [facility] Start: 1970 Sex Assigned At Not on file [facility] Start: 06-13-2022 End: 06-23-2022 Exposure to SARS-CoV-2 (event) Not sure [facility] Start: 10-29-2020 End: 04-14-2024 History of Social function [facility] Start: 10-29-2020 End: 04-14-2024 Tobacco use panel [facility] National Score (1-10 0), lower number is lower risk Not on file [facility] Progress note 04-14-2024 Note Date & Type Note Facility 04-14-2024 Note HNO ID: [id number] Author: MOHINI OCONNOR APRN.MANAGER OF PROCUREMENT Service: ? Author Type: Nurse Practitioner Type: Progress Notes Filed: 04/14/2024 12:42 Note Text: CC: Patient presents with: Ear Problem: Left ear pain and sore throat 3 days HPI: Abbie Regalado is a 53 year old female who presents to the office with complaint of cough, nonproductive, sore throat, sinus symptoms, and ear symptoms for a week. Symptoms are worsening Associated symptoms includes sore throat and facial pain/pressure. Denies fever, nausea, vomiting , pleuritic pain, and diarrhea. Treatments tried include nothing so far. with no relief of symptoms. Sick contacts: unknown. History of asthma, frequent episodes of bronchitis, chronic bronchitis, bronchiectasis or COPD: No Smoker: No Seasonal/environmental allergies: No The ROS is otherwise negative. The patient's pmh, medications, allergies, and past visits are reviewed. PHYSICAL EXAM: BP 138/72 Pulse 89 Temp 36.7 ?C (98 ?F) Resp 16 Wt 66.6 kg (146 lb 13.2 oz) LMP 06/03/2022 SpO2 97% General appearance: alert, cooperative, pleasant, in no acute distress Head: Normocephalic Eyes: EOM's intact, conjunctiva pink and moist, no icterus, sclera white, non-injected Ears: Right ear: External ear/canal- Normal, TM - erythematous. Left ear: External ear/canal- Normal, TM - clear with good landmarks Oropharynx:moist without lesions, No erythema, exudates or tonsillar hypertrophy. Heart: Negative. RRR without obvious murmur, gallop, or rubs. No ectopy. Lungs: clear to auscultation, without rales or wheeze, good air exchange PAST MEDICAL HISTORY Diagnosis Date Chlamydia Gestational diabetes Hearing loss Ovarian cyst UTI PAST SURGICAL HISTORY Procedure Laterality Date DILATION AND CURETTAGE DXAND/THER NONOBSTETRIC Dilation AND curettage for false LIG/TRNSXJ FLP TUBE ABDL/VAG APPR UNI/BI TONSILLECTOMY PRIMARY/SECONDARY Tonsillectomy ALLERGIES Patient has no known allergies. MEDICATIONS diphenhydramine HCl (BENADRYL ALLERGY ORAL) Take by mouth. VITAMIN B COMPLEX-100 ORAL Take by mouth. Gaknaqnzuklmo-Lnkjhguw-Wwiiwg (MULTIVITAMIN 50 PLUS) tab Take 1 tablet by mouth once daily. FAMILY HISTORY Problem Relation Age of Onset Hypertension Father Hearing Loss Father Diabetes Mother Hypertension Mother other (high cholesterol) Mother other (MVP) Daughter other (Other) Daughter under develop trach Social History Tobacco Use Smoking status: Never Smokeless tobacco: Never Substance Use Topics Alcohol use: No Drug use: No ASSESSMENT/PLAN: 1. Sore throat - ICD9: 462, ICD10: J02.9 (primary diagnosis) - STREP A MOLECULAR (POC) - neg 2. Rhinosinusitis - ICD9: 473.9, ICD10: J32.9 - AMOXICILLIN 875 MG-POTASSIUM CLAVULANATE 125 MG TABLET Prescription instructions reviewed with patient as applicable. Potential red flag symptoms discussed with the patient. Reviewed appropriate action plan to take if red flag symptoms occur. Patient agreeable to treatment plan. Mohini Oconnor APRN.[facility] History of Present illness Narrative 04-14-2024 Mohini Oconnor APRN.VEE - 04/14/2024 12:26 PM EDT Note Date & Type Note Facility 04-14-2024 History of Presen t illness Narrative CC: Patient presents with: Ear Problem: Left ear pain and sore throat 3 days HPI: Abbie Regalado is a 53 year old female who presents to the office with complaint of cough, nonproductive, sore throat, sinus symptoms, and ear symptoms for a week. Symptoms are worsening Associated symptoms includes sore throat and facial pain/pressure. Denies fever, nausea, vomiting , pleuritic pain, and diarrhea. Treatments tried include nothing so far. with no relief of symptoms. Sick contacts: unknown. History of asthma, frequent episodes of bronchitis, chronic bronchitis, bronchiectasis or COPD: No Smoker: No Seasonal/environmental allergies: No The ROS is otherwise negative. The patient's pmh, medications, allergies, and past visits are reviewed. PHYSICAL EXAM: BP 138/72 Pulse 89 Temp 36.7 C (98 F) Resp 16 Wt 66.6 kg (146 lb 13.2 oz) LMP 06/03/2022 SpO2 97% General appearance: alert, cooperative, pleasant, in no acute distress Head: Normocephalic Eyes: EOM's intact, conjunctiva pink and moist, no icterus, sclera white, non-injected Ears: Right ear: External ear/canal- Normal, TM - erythematous. Left ear: External ear/canal- Normal, TM - clear with good landmarks Oropharynx:moist without lesions, No erythema, exudates or tonsillar hypertrophy. Heart: Negative. RRR without obvious murmur, gallop, or rubs. No ectopy. Lungs: clear to auscultation, without rales or wheeze, good air exchange PAST MEDICAL HISTORY Diagnosis Date Chlamydia Gestational diabetes Hearing loss Ovarian cyst UTI PAST SURGICAL HISTORY Procedure Laterality Date DILATION & CURETTAGE DX&/THER NONOBSTETRIC Dilation & curettage for false LIG/TRNSXJ FLP TUBE ABDL/VAG APPR UNI/BI TONSILLECTOMY PRIMARY/SECONDARY <AGE 12 Tonsillectomy ALLERGIES Patient has no known allergies. MEDICATIONS diphenhydramine HCl (BENADRYL ALLERGY ORAL) Take by mouth. VITAMIN B COMPLEX-100 ORAL Take by mouth. Jrdgnncxtoeis-Fnomlbjp-Hmfhex (MULTIVITAMIN 50 PLUS) tab Take 1 tablet by mouth once daily. FAMILY HISTORY Problem Relation Age of Onset Hypertension Father Hearing Loss Father Diabetes Mother Hypertension Mother other (high cholesterol) Mother other (MVP) Daughter other (Other) Daughter under develop trach Social History Tobacco Use Smoking status: Never Smokeless tobacco: Never Substance Use Topics Alcohol use: No Drug use: No ASSESSMENT/PLAN: 1. Sore throat - ICD9: 462, ICD10: J02.9 (primary diagnosis) - STREP A MOLECULAR (POC) - neg 2. Rhinosinusitis - ICD9: 473.9, ICD10: J32.9 - AMOXICILLIN 875 MG-POTASSIUM CLAVULANATE 125 MG TABLET Prescription instructions reviewed with patient as applicable. Potential red flag symptoms discussed with the patient. Reviewed appropriate action plan to take if red flag symptoms occur. Patient agreeable to treatment plan. Mohini Oconnor APRN.VEE documented in this encounter [facility] History of Present illness Narrative 06-23-2022 Aldair Maki APRN.VEE - 06/23/2022 8:31 AM EDT Note Date & Type Note Facility 06-23-2022 History of Presen t illness Narrative Images from the original note were not included. Subjective HPI HPI Abbie Regalado is a 51 year old female who presents today for CC of itchy rash. This started 1 week ago. Has tried otc medication with minimal relief. Symptoms are worsened by nothing. Risk factors was working in [employer]. .Patient presents with: Rash: x1 wk, Pt reported working outdoors possible poison fabi exposure, neck, side, billateral arms PAST MEDICAL HISTORY Diagnosis Date Chlamydia Gestational diabetes Hearing loss Ovarian cyst UTI PAST SURGICAL HISTORY Procedure Laterality Date DILATION & CURETTAGE DX&/THER NONOBSTETRIC Dilation & curettage for false LIG/TRNSXJ FLP TUBE ABDL/VAG APPR UNI/BI TONSILLECTOMY PRIMARY/SECONDARY <AGE 12 Tonsillectomy ALLERGIES Patient has no known allergies. MEDICATIONS diphenhydramine HCl (BENADRYL ALLERGY ORAL) Take by mouth. VITAMIN B COMPLEX-100 ORAL Take by mouth. Tunfmggsryjtw-Pymmblme-Upnuuu (MULTIVITAMIN 50 PLUS) tab Take 1 tablet by mouth once daily. predniSONE (DELTASONE) 10 mg tablet Take 4 tabs daily for 3 days, then 2 tabs daily for 3 days, then 1 tab daily for 3 days with food. triamcinolone acetonide (KENALOG) 0.1 % cream Apply 1 application to affected area three times daily for 10 days. Apply sparingly to area for rash/itching. FAMILY HISTORY Problem Relation Age of Onset Hypertension Father Hearing Loss Father Diabetes Mother Hypertension Mother other (high cholesterol) Mother other (MVP) Daughter other (Other) Daughter under develop trach Social History Tobacco Use Smoking status: Never Smoker Smokeless tobacco: Never Used Substance Use Topics Alcohol use: No Drug use: No Review of Systems Constitutional: Negative for chills and fever. Skin: Positive for itching and rash ( ). Objective Blood pressure 122/74, pulse 84, temperature 36.3 C (97.4 F), resp. rate 16, weight 70.2 kg (154 lb 12.8 oz), last menstrual period 06/03/2022, SpO2 98 %. Physical Exam Constitutional: General: She is not in acute distress. Appearance: She is not toxic-appearing or diaphoretic. HENT: Head: Normocephalic and atraumatic. Skin: General: Skin is warm and dry. Findings: Rash present. Rash is vesicular (distribution linear ). Neurological: Mental Status: She is alert and oriented to person, place, and time. ASSESSMENT/PLAN: 1. Rhus dermatitis - ICD9: 692.6, ICD10: L25.5 - Oral Steriod tx -Prednisone taper - Topical steriod tx with Rx for steriod cream/ointment- see orders - discussed skin care of rash - follow up if symptoms persist or worsen. - PREDNISONE 10 MG TABLET - TRIAMCINOLONE ACETONIDE 0.1 % TOPICAL CREAM Agrees to plan Aldair Maki APRN.VEE documented in this encounter [facility] Note 09-26-2020 Telephone Encounter - Marta Greenfield Ma - 09/26/2020 1:39 PM ESTTelephone Encounter - Sundeep Neville - 09/26/2020 1:24 PM ESTTelephone Encounter - Marta Greenfield Ma - 09/26/2020 9:33 AM EST Note Date & Type Note Facility 09-26-2020 Miscellaneous Notes Letter faxed to patient's employer. Ok to write that letter for her to be off work until tomorrow Sundeep Neville DPM Patient is asking for a letter to be off work tonight 09/26/2020 due to her continuing to have pain in her toe. documented in this encounter [facility] Evaluation note Note Date & Type Note Facility Evaluation note Diagnosis Rhus dermatitis- Primary Contact dermatitis and other eczema due to plants (except food) documented in this encounter [facility] Evaluation note Note Date & Type Note Facility Evaluation note Diagnosis Sore throat- Primary Acute pharyngitis Rhinosinusitis Unspecified sinusitis (chronic) documented in this encounter [facility] Summary Purpose Family History No Family History Records Found Advance Directives No Advanced Directives Records Found Additional Source Comments Source Comments (unrecognize d section and content) In the event this informatio n is protected by the Federal Confidentiality of Alcohol and Drug Abuse Patient Records regulations: The Federal rules restrict any use of the information to criminally investigate or prosecute any alcohol or drug abuse patient.[facility] the event this information is protected by the Federal Confidentiality of Alcohol and Drug Abuse Patient Records regulations: The Federal rules restrict any use of the information to criminally investigate or prosecute any alcohol or drug abuse patient.[facility] the event this information is protected by the Federal Confidentiality of Alcohol and Drug Abuse Patient Records regulations: The Federal rules restrict any use of the information to criminally investigate or prosecute any alcohol or drug abuse patient.[facility] Reason for Visit (unrecogniz ed section and content) Reason Comments Patient Question Reason Comments Rash x1 wk, Pt reported w orking outdoors possible poison fabi exposure, neck, side, billateral arms Reason Comments Ear Problem Left ear pain and so re throat 3 days INFORMATION SOURCE (unrecogn ized section and content) DATE CREATED AUTHOR 04/16/2024 [facility] FOR RECORDS PERTAINING TO PATIENTS WHO ARE OR HAVE BEEN ENROLLED IN A CHEMICAL DEPENDENCY/SUBSTANCEABUSE PROGRAM, SOME INFORMATION MAY BE OMITTED. This clinical summary was aggregated from multiple sources. Caution should be exercised in using it in the provision of clinical care. This summary normalizes information from multiple sources, and as a consequence, information in this document may materially change the coding, format and clinical context of patient data. In addition, data may be omitted in some cases. CLINICAL DECISIONS SHOULD BE BASED ON THE PRIMARY CLINICAL RECORDS. [facility]. provides no warranty or guarantee of the accuracy or completeness of information in this document.
== END | disposition home or self-care (01) ==
LOC: VSLAB 16:03
PROVIDERS: PCP Nurse Practitioner Family; Visit Provider Nurse Practitioner Family
DX: Z13.220 Encounter for screening for lipoid disorders (principal); Z13.1 Encounter for screening for diabetes mellitus; H81.10 Benign paroxysmal vertigo, unspecified ear
CPT/HCPCS: 36415; 80053; 80061; 83036; 84443; 85025

== ENCOUNTER → 2024-10-03 | Outpatient (CLI) | payer BC, SELFPAY ==
--- NOTE | 2024-10-03 10:40 | RAD_ITS ---
EXAM: XR LEFT HAND COMPLETE, 3 OR MORE VIEWS CLINICAL INDICATION: PAIN IN LEFT FINGER TECHNIQUE: Frontal, lateral and oblique views of the left hand. COMPARISON: No relevant prior studies available. FINDINGS: BONES/JOINTS: Bone spurs in the dorsal surface of the second, third, fourth and fifth distal phalanges. No acute fracture. No subluxation. Normal alignment. Preservation of the joint space. No sclerotic or destructive changes observed. SOFT TISSUES: Unremarkable. No soft tissue swelling or gas. No radiopaque foreign body. RAD/Hand Min 3 Views IMPRESSION: 1. Bone spurs in the dorsal surface of the base of the second, third, fourth and fifth distal phalanges. The bone spur is most prominent in the second distal phalanx. 2. No acute osseous abnormality of the left hand. Electronically Signed: Chato Pickering MD at 9:34 EST ,
[2024-10-03 14:14] LABS: HIV - WCH Non-Reactive (Nonreactive); Syphilis Antibodies Non-reactive
[2024-10-04 05:08] LABS: HEPATITIS B SURFACE AG Negative (Negative); Hep B Surface Antibodies Non Reactive (.); Hepatitis B Core Ab Total Negative (Negative); Hepatitis C Ab Non Reactive (Non Reactive)
== END | disposition home or self-care (01) ==
PROVIDERS: PCP Nurse Practitioner Family; Referring Provider Nurse Practitioner Family; Visit Provider Nurse Practitioner Family
DX: Z11.3 Encounter for screening for infections with a predominantly sexual mode of transmission (principal); M79.645 Pain in left finger(s)
CPT/HCPCS: 36415; 73130; 86703; 86704; 86705; 86706; 86707; 86780; 86803; 87340; 87350

== ENCOUNTER → 2024-10-10 | Outpatient (CLI) | payer BC, SELFPAY ==
--- NOTE | 2024-10-10 07:09 | BI_ITS ---
MAMMOGRAPHY - BILATERAL SCREENING REASON FOR EXAM: Female, 53 years old. Routine annual screening examination. PERTINENT HISTORY: Non-contributory. TECHNIQUE: Digital bilateral breast deshawn (3D mammographic acquisition) in the CC and MLO projections. 2-D mediolateral oblique (MLO) and craniocaudad (CC) views of both breasts were obtained. CAD: Full Field Digital Mammography with Computer Added Detection was performed. COMPARISON: Comparison is made with prior study dated January 14, 2023 and August 01, 2014. FINDINGS: Breast Composition: The breasts are heterogeneously dense, which may obscure small masses. There are no dominant masses or suspicious calcifications. Stable bilateral fat containing axillary lymph nodes. No other significant abnormalities are identified. There has been no significant change since the prior study. BI/SCRN MAMM (CAD)W/DESHAWN BILAT IMPRESSION: Stable bilateral screening mammogram. Yearly follow-up mammogram recommended. (A) ASSESSMENT CATEGORY: BIRADS Category 2: Benign. A letter regarding these results will be sent to the patient by the facility within 30 days. Approximately 10% of breast cancers are not detected by mammography. A normal mammogram should not delay biopsy of a clinically suspicious abnormality. [id number] Electronically Signed: Benigno Ruvalcaba MD at 9:36 EST ,
== END | disposition home or self-care (01) ==
LOC: OPBI 07:08
PROVIDERS: PCP Nurse Practitioner Family; Referring Provider Nurse Practitioner Family; Visit Provider Nurse Practitioner Family
DX: Z12.31 Encounter for screening mammogram for malignant neoplasm of breast (principal)
CPT/HCPCS: 77063; 77067

== ENCOUNTER 2024-11-12 05:11 | Emergency (ER) | payer BC, SELFPAY ==
[2024-11-12 05:12] VITALS: BP 146/89; PULSE 85; RESP 16; TEMP 36.5; O2SAT 98; BMI 31.4
[2024-11-12] MEDS: Lidocaine 2% Viscous15 ML UDC 15 ML PO (06:38)
[2024-11-12] MEDS: Mag Hydrox/Al Hydrox/Simeth 30 ML UDC PO (06:38)
--- NOTE | 2024-11-12 07:18 | EX.ED.DYSGE1 ---
HPI History of Present Illness Chief Complaint: Other, Pain/Inj Informant: patient Narrative Narrative: 53-year-old female presenting to the emergency room with pain in her throat. Patient states that early night she experienced some reflux and vomited and felt something in her throat which made her throw up again. She states she feels that there is something uncomfortable in her esophagus in my throat. She is not having any voice change fevers is able to drink okay. She is feels that there could be a chip or some type of food stuck. [facility] Medical History Wears hearing aid Loss of hearing Wears glasses History of MRSA infection Wears dentures Non-smoker History of back problems Anxiety and depression Home Medications ?Medication ?Instructions ?Recorded ?Last Taken ?Type ibuprofen 200 mg capsule 200 mg PO TID-QID PRN Pain 01/09/19 Unknown History estradiol 0.01% (0.1 mg/gram) See Rx Instructions vaginal 11/01/24 Unknown Rx vaginal cream .COMPLEX #42.5 grams Allergy/AdvReac Type Severity Reaction Status Date / Time No Known Allergies Allergy Verified 11/12/24 05:11 Family History Mother COPD (chronic obstructive pulmonary disease) Kidney disease CVA (cerebral vascular accident) Congestive heart disease Heart disease Hypertension Father Congestive heart disease COPD (chronic obstructive pulmonary disease) Hypertension Surgical History History of toe surgery H/O tubal ligation History of tonsillectomy H/O dilation and curettage Social History Smoking Status: Never smoker alcohol intake: never substance use type: does not use caffeine: Yes what type of physical activity do you participate in: walking seatbelt use: always do you feel safe at home: Yes 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 ED Constitutional Constitutional ED: Denies chills or weight loss Eyes Eyes: Denies change in vision or diplopia ENT ENT ED: Reports other Details: See history of present illness ; Denies ear pain or rhinorrhea Cardiovascular Cardiovascular: Denies chest pain, orthopnea, palpitations or racing heartbeat Respiratory/Chest Respiratory/Chest: Denies cough, dyspnea or orthopnea Gastrointestinal Gastrointestinal: Reports vomiting; Denies abdominal pain, diarrhea or nausea Genitourinary Genitourinary ED: Denies dysuria, hematuria or urinary frequency Musculoskeletal Musculoskeletal: Denies arthralgias or myalgias Integumentary Denies abscess or rash Neurologic Neurologic: Denies headache(s) or weakness Psychiatric Psychiatric: Denies anxiety, depression, suicidal ideation or suicidal thoughts Endocrine Endocrinology: Denies polydipsia, polyphagia or polyuria Allergic/Immunologic Allergic/Immunologic ED: Denies mouth swelling, tongue swelling or urticaria EXAM Physical Exam Narrative Exam Narrative: Patient appears to be handling her secretions normally. There normal phonation. No drooling. Const Vital Signs: 11/12/24 05:12 11/12/24 05:12 Temperature 97.7 F L Temperature Source Oral Pulse Rate 85 Respiratory Rate 16 Respiratory Pattern Normal Blood Pressure 146/89 H Blood Pressure Mean 108 Pulse Ox 98 Positive well nourished and well developed General Appearance ED: well developed HEENT Reports normocephalic, head/scalp atraumatic and moist mucous membranes Eyes PERRL and EOMs intact bilaterally Neck no lymphadenopathy, supple and no JVD Resp normal respiratory effort and clear to auscultation bilaterally Cardio regular rate, regular rhythm and no murmurs GI normal to inspection, nondistended, normoactive bowel sounds and non-tender Palpation: soft Back/Spine no CVA tenderness and normal ROM Extremity normal to inspection General Extremety ED: Negative for edema General Extremity: Negative for edema Neuro oriented x3 and CN's II-XII intact bilaterally Sensorium / Orientation: alert Motor Exam: strength 5/5 throughout Psych mental status grossly normal Mood & Affect: Negative for depressed or tearful Skin no rashes or lesions noted and no wounds MDM MDM MDM Narrative Medical decision making narrative: Differential diagnosis includes from drill abrasion foreign body epiglottitis esophageal food impaction Patient was able to tolerate a Coke without difficulty. She is given a GI cocktail which she states numbed her lips and tongue but did not do anything for her throat. I do not feel that risk-benefit would be in favor of sedation with direct laryngoscopy at this time. There is a good chance this could be simply an abrasion or irritation from acid. I would recommend monitoring for the next 24 to 4872 hours orally hydrate if continued symptoms follow-up with the ENT patient is comfortable with this plan History & Record Review Discussion w/independent historian: Patient Discharge Plan Triage Chief Complaint: Other, Pain/Inj ED Provider: Willard Mckeon Dx/Rx/DC Orders Clinical Impression: Abrasion of pharynx, Pain in throat Instructions: ED Pharyngeal Abrasion Prescriptions: No Action ibuprofen 200 mg capsule 200 mg PO TID-QID PRN (Reason: Pain) estradiol 0.01 % (0.1 mg/gram) cream See Rx Instructions vaginal .COMPLEX Qty: 42.5 2RF Rx Instructions: small amount as directed vaginal every other day X 4 weeks then twice a week; Primary Care Provider: Shwetha Marquez Referrals: Arturo Griffin MD [Med Staff - Active Staff] - (2-3 days if not improved/resolved) Shwetha Marquez, [facility] [Primary Care Provider] - Print Language: Setswana Disposition Disposition: Home, Self Care
[2024-11-12 07:21] VITALS: BP 125/82; PULSE 76; RESP 16; TEMP 36.4; O2SAT 99
== END 2024-11-12 07:22 | disposition home or self-care (01) ==
PROVIDERS: Emergency Provider Emergency Medicine; PCP Nurse Practitioner Family; Visit Provider Emergency Medicine
DX: S10.11XA Abrasion of throat, initial encounter (principal); X58.XXXA Exposure to other specified factors, initial encounter
CPT/HCPCS: 99283

== ENCOUNTER → 2025-10-23 | Outpatient (CLI) | payer BC, SELFPAY ==
[2025-10-26 11:08] LABS: HPV APTIMA, High Risk Negative (Negative)
== END | disposition home or self-care (01) ==
LOC: LABSPEC 17:04
PROVIDERS: PCP Nurse Practitioner Family; Referring Provider Nurse Practitioner Family; Visit Provider Nurse Practitioner Family
DX: Z12.4 Encounter for screening for malignant neoplasm of cervix (principal)
CPT/HCPCS: 87624; 88175; G0145